=== PATIENT | female | born 1990 | race Caucasian/White ===

== ENCOUNTER 2021-01-21 10:19 | Emergency (ER) | payer OTHER ==
[~2021-01-21 10:19] MED LIST: COLACE100 MG PO; DOXYCYCLINE MO100 MG PO; IBUPROFEN600 MG PO; MULTI VITAMIN PO; NORCO 10-325 T1 EACH PO; NORCO 5-325 TA1 EACH PO; VITAMIN B-625 MG PO; ZOFRAN ODT 4 MG4 MG SL
[2021-01-21 11:44] LABS: HEMOGLOBIN 12.4 gm/dl (12.3-15.3); RED BLOOD COUNT 4.28 M/UL (4.00-5.10); WHITE BLOOD COUNT 4.7 K/UL (4.5-11.0)
[2021-01-21 12:06] LABS: BUN/CREATININE RATIO 19 (0-10)
[2021-01-21] MEDS ORDERED: ZOFRAN ODT 4 MG4 MG PO (12:56)
[2021-01-21] MEDS ORDERED: OMNICEF 300 MG300 MG PO (12:56)
== END 2021-01-21 13:05 | disposition home or self-care (01) ==
LOC: ER1 10:19
PROVIDERS: Family Medicine
DX: H70.91 Unspecified mastoiditis, right ear (principal); R11.2 Nausea with vomiting, unspecified; Z90.49 Acquired absence of other specified parts of digestive tract; Z88.0 Allergy status to penicillin; Z79.899 Other long term (current) drug therapy
CPT/HCPCS: 70450; 80053; 81001; 83690; 84703; 85025; 96374; 96375; 99284; J1885; J2405